=== PATIENT | male | born 1965 | race Caucasian/White ===

== ENCOUNTER 2025-04-17 08:30 | Day surgery (SDC) | payer OTHER ==
[~2025-04-17] VITALS: Ht 190.5 cm; Wt 113.1 kg
[~2025-04-17 08:30] MED LIST: Lidocaine 2%-Epineph 1:100000 20 ML MDV ONE; Lidocaine HCl 2% 10 ML SDA ONE
[2025-04-17] MEDS ORDERED: CeFAZolin Sodium 2,000 MG VIAL ONE (09:23)
[2025-04-17] MEDS ORDERED: OXYCONTIN10 MG PO (09:29)
[2025-04-17] MEDS ORDERED: IBUP200 PO (09:30)
[2025-04-17] MEDS ORDERED: Midazolam HCl 1MG / ML 2ML Vial ONE (09:49)
[2025-04-17] MEDS ORDERED: FentaNYL Citrate 50 MCG/ML 2 ML Injection ONE (09:49)
[2025-04-17] MEDS ORDERED: Rocuronium Bromide 10 MG/ML 5ML Injection IV ONE (09:49)
[2025-04-17] MEDS ORDERED: Dexamethasone Sod Phos 10 MG/ML 1ML VIAL ONE (10:14)
[2025-04-17] MEDS ORDERED: Ondansetron HCl 2 MG / ML 2ML Vial ONE (10:14)
[2025-04-17] MEDS ORDERED: Sugammadex Sodium 200 MG/2ML SDV (100 MG/ML) ONE (10:19)
[2025-04-17] MEDS ORDERED: HYDROcodone 5-APAP 325 TAB ONE (11:02)
[2025-04-17 11:05] VITALS: BP 127/98
--- NOTE | 2025-04-17 12:46 | NUR ---
04/17/25 0086 [facility] QUARLES PT DECIDED TO LEAVE PART WAY THROUGH DISCHARGE INSTRUCTIONS. I ASKED HIM IF I COULD FINISH OR DID HE JUST WANT TO READ THEM WHEN HE GOT HOME. "I'LL READ THEM MYSELF. NOT MY FIRST RODEO". NEPHEWMIRACLE WITH PT FOR DC AND DROVE HIM HOME.
== END 2025-04-17 11:12 | disposition home or self-care (01) ==
LOC: ORSCSDS 08:30
PROVIDERS: Orthopaedic Surgery
PROC: 01N54ZZ Release Median Nerve, Percutaneous Endoscopic Approach (ICD-10-PCS; principal; 2025-04-17 10:30)
PROC: 01N40ZZ Release Ulnar Nerve, Open Approach (ICD-10-PCS; principal; 2025-04-17 10:30)
DX: G56.22 Lesion of ulnar nerve, left upper limb (principal); G56.02 Carpal tunnel syndrome, left upper limb
CPT/HCPCS: A9270; J0690; J1100; J2003; J2250; J2405; J2704; J3010; J7120